=== PATIENT | female | born 1990 | race American Indian/Alaskan Native ===

== ENCOUNTER 2016-12-02 21:13 | Emergency (ER) | payer MEDICAID ==
[2016-12-02 23:43] VITALS: BP 110/70
[2016-12-03 01:28] LABS: Basophils % (Auto) 0.3 % (0.0-1.8); Eosinophils % (Auto) 0.9 % (0.0-4.3); Hematocrit 39.8 % (30.3-42.9); Mean Corpuscular HGB Conc 33 % (30-34); Mean Corpuscular Hemoglobin 27 pg (28-32); Mean Corpuscular Volume 84 fl (79-97); Platelet Count 298 K/mm3 (140-440); Red Blood Count 4.76 M/mm3 (3.65-5.03); Red Cell Distribution Width 13.4 % (13.2-15.2); White Blood Count 8.2 K/mm3 (4.5-11.0)
[2016-12-03 01:35] LABS: Bacteria,Urine 1+ /HPF (Negative); Bilirubin,Urine NEG (Negative); Blood,Urine NEG (Negative); Ketones,Urine NEG (Negative); Leukocyte Esterase,Urine NEG (Negative); Mucus,Urine FEW /HPF; Nitrite,Urine NEG (Negative); Protein,Urine <15 mg/dL mg/dL (Negative)
[2016-12-03 01:48] LABS: Alanine Aminotransferase 14 units/L (7-56); Albumin 4.1 g/dL (3.9-5); Albumin/Globulin Ratio 1.1 %; Alkaline Phosphatase 88 units/L (35-129); Anion Gap 20 mmol/L; Blood Urea Nitrogen 11 mg/dL (7-17); Calcium 9.5 mg/dL (8.4-10.2); Carbon Dioxide 22 mmol/L (22-30); Chloride 99.5 mmol/L (98-107); Glucose 95 mg/dL (65-100); Lipase 31 units/L (13-60); Potassium 3.6 mmol/L (3.6-5.0); Sodium 138 mmol/L (137-145); Total Protein 7.8 g/dL (6.3-8.2)
== END 2016-12-03 19:44 | disposition left against medical advice (07) ==
LOC: ED 21:13
DX: R10.9 Unspecified abdominal pain (principal); Z53.21 Procedure and treatment not carried out due to patient leaving prior to being seen by health care provider
CPT/HCPCS: 36415; 80053; 81001; 83690; 85025

== ENCOUNTER 2021-09-11 01:43 | Emergency (ER) | payer MEDICAID ==
[2021-09-11 07:50] LABS: Hematocrit 37.2 % (30.3-42.9); Hemoglobin 12.4 gm/dl (10.1-14.3); Mean Corpuscular HGB Conc 33 % (30-34); Mean Corpuscular Volume 84 fl (79-97); Platelet Count 304 K/mm3 (140-440); Red Blood Count 4.43 M/mm3 (3.65-5.03); Red Cell Distribution Width 14.1 % (13.2-15.2)
[2021-09-11 07:54] LABS: HCG Qualitative,Urine Negative (Negative)
[2021-09-11 08:01] LABS: Mucus,Urine 3+ /HPF
[2021-09-11 08:13] LABS: Alanine Aminotransferase 10 units/L (7-56); Albumin 4.7 g/dL (3.9-5); Blood Urea Nitrogen 7 mg/dL (7-17); Calcium 9.5 mg/dL (8.4-10.2); Hemolysis Index 12
[2021-09-11 08:17] LABS: Bilirubin,Urine Negative (Negative); Blood,Urine 1+ (Negative); Color,Urine Yellow (Yellow); Urobilinogen,Urine < 2.0 mg/dL (<2.0)
[2021-09-11 08:20] LABS: BUN/Creatinine Ratio 23; Bilirubin,Direct < 0.2 mg/dL (0-0.2)
[2021-09-11] MEDS ORDERED: SODIUM CHLORIDE 0.9% 1000 ML 1,000 ML IV ONE ×2 (08:42→11:28)
[2021-09-11] MEDS ORDERED: PANTOPRAZOLE 40 MG INJ IV ONE (08:45)
[2021-09-11] MEDS ORDERED: ONDANSETRON 4 MG/2 ML INJ IV ONE (08:45)
[2021-09-11] MEDS ORDERED: CEFEPIME/NS 2 GM/100 ML 2 GM/100 ML BAG IV ONE (08:46)
--- NOTE | 2021-09-11 08:47 | Emergency Department Report ---
ED Abdominal Pain HPI - General Chief Complaint: Abdominal Pain Stated Complaint: ABD PAIN PUI?: No Time Seen by Provider: 09/11/21 08:10 Source: patient, EMS Mode of arrival: Ambulatory Limitations: No Limitations - History of Present Illness Initial Comments: Ms. Lopez is a 30-year-old female that comes to the emergency room complaining of stomach pain and vomiting since last night. She denies fever or chills. Denies dysuria or back pain. Patient has no diarrhea last menstrual cycle 6-10. Patient has no chest pain or shortness of breath. She denies any medical history or surgeries. Takes no medications daily denies alcohol drugs or cigarette use. Denies alcohol. Denies any marijuana. Patient states she is never had anything like this in the past MD Complaint: abdominal pain -: Sudden Location: epigastric Radiation: none Severity scale (0 -10): 10 Quality: aching, sharp Consistency: constant Improves With: nothing Worsens With: nothing Associated Symptoms: denies other symptoms, nausea, vomiting, chills. denies: diarrhea, fever, constipation, dysuria, hematemesis, hematochezia, melena, hematuria, anorexia, syncope - Related Data LMP (females 10-50): other (August 31) Previous Rx's Medication Instructions Recorded Last Taken Type Famotidine [Pepcid] 20 mg PO DAILY #30 tablet 09/11/21 Unknown Rx Ondansetron [Zofran Odt] 4 mg PO Q8HR PRN #10 tab.rapdis 09/11/21 Unknown Rx Allergies Allergy/AdvReac Type Severity Reaction Status Date / Time No Known Allergies Allergy Verified 09/11/21 08:12 ED Review of Systems ROS: Stated complaint: ABD PAIN Other details as noted in HPI Comment: All other systems reviewed and negative ED Past Medical Hx - Past Medical History Previous Medical History?: No Hx Seizures: No - Surgical History Past Surgical History?: Yes Additional Surgical History: [id number] - Family History Family history: no significant - Social History Smoking Status: Never Smoker Substance Use Type: None - Medications Home Medications: Home Medications Medication Instructions Recorded Confirmed Last Taken Type Famotidine [Pepcid] 20 mg PO DAILY #30 tablet 09/11/21 Unknown Rx Ondansetron [Zofran Odt] 4 mg PO Q8HR PRN #10 tab.rapdis 09/11/21 Unknown Rx ED Physical Exam - General Limitations: No Limitations General appearance: alert, in no apparent distress - Head Head exam: Present: atraumatic, normocephalic - Eye Eye exam: Present: normal appearance - ENT ENT exam: Present: mucous membranes moist - Neck Neck exam: Present: normal inspection - Respiratory Respiratory exam: Present: normal lung sounds bilaterally. Absent: respiratory distress - Cardiovascular Cardiovascular Exam: Present: regular rate, normal rhythm. Absent: systolic murmur, diastolic murmur, rubs, gallop - GI/Abdominal GI/Abdominal exam: Present: soft, tenderness (Over the epigastrium), normal bowel sounds - Extremities Exam Extremities exam: Present: normal inspection - Back Exam Back exam: Present: normal inspection - Neurological Exam Neurological exam: Present: alert, oriented X3 - Psychiatric Psychiatric exam: Present: normal affect, normal mood - Skin Skin exam: Present: warm, dry, intact, normal color. Absent: rash ED Course Vital Signs 09/11/21 09/11/21 01:49 08:32 Temperature 98.5 F 98.9 F Pulse Rate 99 H 101 H Respiratory 16 18 Rate Blood Pressure 147/87 154/85 [Right] O2 Sat by Pulse 99 98 Oximetry ED Medical Decision Making - Lab Data Result diagrams: 09/11/21 07:37 09/11/21 07:37 - Radiology Data Radiology results: report reviewed, image reviewed No acute process - Medical Decision Making Vital Signs 09/11/21 09/11/21 01:49 08:32 Temperature 98.5 F 98.9 F Pulse Rate 99 H 101 H Respiratory 16 18 Rate Blood Pressure 147/87 154/85 [Right] O2 Sat by Pulse 99 98 Oximetry Lab Results 09/11/21 09/11/21 09/11/21 Range/Units 07:37 07:37 Unknown WBC 13.4 H (4.5-11.0) K/mm3 RBC 4.43 (3.65-5.03) M/mm3 Hgb 12.4 (10.1-14.3) gm/dl Hct 37.2 (30.3-42.9) % MCV 84 (79-97) fl MCH 28 (28-32) pg MCHC 33 (30-34) % RDW 14.1 (13.2-15.2) % Plt Count 304 (140-440) K/mm3 Add Manual Diff Complete Total Counted 100 Seg Neutrophils % Nursing Teacher Seg Neuts % (Manual) 94.0 H (40.0-70.0) % Band Neutrophils % 0 % Lymphocytes % (Manual) 4.0 L (13.4-35.0) % Reactive Lymphs % (Man) 0 % Monocytes % (Manual) 2.0 (0.0-7.3) % Eosinophils % (Manual) 0 (0.0-4.3) % Basophils % (Manual) 0 (0.0-1.8) % Metamyelocytes % 0 % Myelocytes % 0 % Promyelocytes % 0 % Blast Cells % 0 % Nucleated RBC % Not Reportable Seg Neutrophils # Man 12.6 H (1.8-7.7) K/mm3 Band Neutrophils # 0.0 K/mm3 Lymphocytes # (Manual) 0.5 L (1.2-5.4) K/mm3 Abs React Lymphs (Man) 0.0 K/mm3 Monocytes # (Manual) 0.3 (0.0-0.8) K/mm3 Eosinophils # (Manual) 0.0 (0.0-0.4) K/mm3 Basophils # (Manual) 0.0 (0.0-0.1) K/mm3 Metamyelocytes # 0.0 K/mm3 Myelocytes # 0.0 K/mm3 Promyelocytes # 0.0 K/mm3 Blast Cells # 0.0 K/mm3 WBC Morphology Not Reportable Hypersegmented Neuts Not Reportable Hyposegmented Neuts Not Reportable Hypogranular Neuts Not Reportable Smudge Cells Not Reportable Toxic Granulation Not Reportable Toxic Vacuolation Not Reportable Dohle Bodies Not Reportable Pelger-Huet Anomaly Not Reportable Dimitry Rods Not Reportable Platelet Estimate Consistent w auto Clumped Platelets Not Reportable Plt Clumps, EDTA Not Reportable Large Platelets Rare Giant Platelets Not Reportable Platelet Satelliting Not Reportable Plt Morphology Comment Not Reportable RBC Morphology Normal Dimorphic RBCs Not Reportable Polychromasia Not Reportable Hypochromasia Not Reportable Poikilocytosis Not Reportable Anisocytosis Not Reportable Microcytosis Not Reportable Macrocytosis Not Reportable Spherocytes Not Reportable Pappenheimer Bodies Not Reportable Sickle Cells Not Reportable Target Cells Not Reportable Tear Drop Cells Not Reportable Ovalocytes Not Reportable Helmet Cells Not Reportable Chapman-Mcfall Bodies Not Reportable [place] Rings Not Reportable Christian Cells Not Reportable Bite Cells Not Reportable Crenated Cell Not Reportable Elliptocytes Not Reportable Acanthocytes (Spur) Not Reportable Rouleaux Not Reportable Hemoglobin C Crystals Not Reportable Schistocytes Not Reportable Malaria parasites Not Reportable Keenan Bodies Not Reportable Hem Pathologist Commnt No Sodium 138 (137-145) mmol/L Potassium 3.5 L (3.6-5.0) mmol/L Chloride 100.3 (98-107) mmol/L Carbon Dioxide 24 (22-30) mmol/L Anion Gap 17 mmol/L BUN 7 (7-17) mg/dL Creatinine 0.3 L (0.6-1.2) mg/dL Estimated GFR > 60 ml/min BUN/Creatinine Ratio 23 % Glucose 136 H (65-100) mg/dL Calcium 9.5 (8.4-10.2) mg/dL Total Bilirubin 0.30 (0.1-1.2) mg/dL Direct Bilirubin < 0.2 (0-0.2) mg/dL Indirect Bilirubin 0.1 mg/dL AST 14 (5-40) units/L ALT 10 (7-56) units/L Alkaline Phosphatase 58 (35-129) units/L Total Protein 7.9 (6.3-8.2) g/dL Albumin 4.7 (3.9-5) g/dL Albumin/Globulin Ratio 1.5 % Lipase 13 (13-60) units/L Urine Color Yellow (Yellow) Urine Turbidity Clear (Clear) Urine pH 5.0 (5.0-7.0) Ur Specific [place] 1.035 H (1.003-1.030) Urine Protein 30 mg/dl (Negative) mg/dL Urine Glucose (UA) Negative (Negative) mg/dL Urine Ketones 25 (Negative) mg/dL Urine Blood 1+ (Negative) Urine Nitrite Negative (Negative) Ur Reducing Substances Not Reportable Urine Bilirubin Negative (Negative) Urine Ictotest Not Reportable Urine Urobilinogen < 2.0 (<2.0) mg/dL Ur Leukocyte Esterase Negative (Negative) Urine WBC (Auto) 1.0 (0.0-6.0) /HPF Urine RBC (Auto) 10.0 (0.0-6.0) /HPF U Epithel Cells (Auto) 10.0 (0-13.0) /HPF Urine Mucus 3+ /HPF Urine HCG, Qual Negative (Negative) UA noted. No UTI. 25 ketones. +1 blood. negative. Labs noted. WBC mildly elevated. Given a dose of cefepime until CT can be completed. Lipase normal-patient denies a history of gallstones. LFTs normal. No tenderness of the right upper quadrant. Patient also given PPI and GI cocktail. On discharge exam she reports that she did get some relief with that. On discharge follow-up she is taking p.o. She has had no active nausea or vomiting. K was noted to be 3.5 on admission. Have given her 2 g of mag and some potassium p.o. CT scan noted Reviewed the above findings with the patient. I will have her follow-up with GI MD. Also given her referral to PCP. Patient being discharged home with discharge plan of care including diet, activity, medications and follow-up. Patient verbalizes understanding of plan of care. On discharge patient ambulatory, nontoxic not ill appearing taking p.o. With no active vomiting. No complaints of pain. - Differential Diagnosis Gastritis, GERD, Marta-Cavazos tear, UTI, Critical care attestation.: If time is entered above; I have spent that time in minutes in the direct care of this critically ill patient, excluding procedure time. ED Disposition Clinical Impression: Epigastric pain, Hypokalemia Nausea and vomiting Qualifiers: Vomiting type: unspecified Qualified Code(s): R11.2 - Nausea with vomiting, unspecified Disposition: 01 HOME / SELF CARE / HOMELESS Is pt being admited?: No Does the pt Need Aspirin: No Condition: Stable Instructions: Abdominal Pain (ED), Nausea and Vomiting, Adult Additional Instructions: [place] diet today. Bananas rice applesauce and toast. Advance as tolerated. Medication as ordered today. Follow-up with GI or stomach doctor and PCP this week. I have given you referrals below. Call their office today and make an appointment. Stay well-hydrated with water food rich in potassium such as bananas Referrals: AURORA CHOW MD [Primary Care Provider] - 3-5 Days DIVYA PÉREZ MD [Staff Physician] - 3-5 Days Time of Disposition: 12:59
[2021-09-11 09:21] LABS: Basophils % (Manual) 0 % (0.0-1.8); Eosinophils % (Manual) 0 % (0.0-4.3); Total Cells Counted 100
[2021-09-11 09:22] LABS: Large Platelets Rare; Platelet Estimate Consistent w Auto; RBC Morphology Normal
--- NOTE | 2021-09-11 11:48 | Cat Scan Report ---
CT ABDOMEN AND PELVIS WITHOUT CONTRAST INDICATION / CLINICAL INFORMATION: severe abd pain; chills. TECHNIQUE: Axial CT images were obtained through the abdomen and pelvis without IV contrast. All CT scans at this location are performed using CT dose reduction for ALARA by means of automated exposure control. COMPARISON: None available. FINDINGS: LOWER CHEST: No significant abnormality. AORTA / ARTERIES: No significant abnormality. IVC / VEINS: No significant abnormality. LYMPH NODES: No significant adenopathy. COLON: No significant abnormality. APPENDIX: No significant abnormality. STOMACH / SMALL BOWEL: No significant abnormality. PERITONEUM: No free fluid. No free air. No fluid collection. LIVER: No significant abnormality. GALLBLADDER: No significant abnormality. BILE DUCTS: No significant abnormality. PANCREAS: No significant abnormality. SPLEEN: No significant abnormality. ADRENALS: No significant abnormality. RIGHT KIDNEY / URETER: No significant abnormality. LEFT KIDNEY / URETER: No significant abnormality. URINARY BLADDER: No significant abnormality. REPRODUCTIVE ORGANS: No significant abnormality. SKELETAL SYSTEM: No significant abnormality. ADDITIONAL FINDINGS: None. IMPRESSION: 1. No CT findings to explain symptomatology. Signer Name: Marin Campuzano DO Signed: 09/11/2021 10:36 AM Workstation Name: [id number]
[2021-09-11] MEDS ORDERED: LIDOCAINE VISCOUS 2% 15 ML ORAL LIQD PO ONE (12:17)
[2021-09-11] MEDS ORDERED: ALUM-MAG HYDROXIDE-SIMETHICONE 200-200-20MG/5ML ORAL LIQD 30 ML PO ONE (12:17)
[2021-09-11] MEDS ORDERED: MAGNESIUM SULFATE 2 GM/50 ML BAG IV ONE (12:55)
[2021-09-11] MEDS ORDERED: POTASSIUM CHLORIDE 20 MEQ PACKET PO ONE (13:30)
[2021-09-11 14:52] VITALS: BP 116/67
== END 2021-09-11 14:50 | disposition home or self-care (01) ==
LOC: ED 01:43
DX: R10.13 Epigastric pain (principal); R11.2 Nausea with vomiting, unspecified
CPT/HCPCS: 36415; 74176; 80048; 80076; 81001; 81025; 82140; 83690; 85007; 85025; 96361; 96365; 96367; 96375; 99284; C9113; J0692; J2405; J3475; J7030